=== PATIENT | female | born 1995 | race American Indian/Alaskan Native ===

== ENCOUNTER 2019-01-07 18:47 | Emergency (ER) | payer OTHER ==
[2019-01-07 19:39] VITALS: BP 117/80
--- NOTE | 2019-01-07 19:47 | Emergency Department Report ---
Chief Complaint: Urogenital-Female Stated Complaint: EXPOSURE TO STD Time Seen by Provider: 01/07/19 19:40 - HPI History of Present Illness: This is a 23-year-old female nontoxic, well in appearance with no signs of distress presents to the ED for STD check. Patient stated that his partner called and said has STD. Patient stated was treated by PCP for STD and she just wants to have a recheck. Patient stated she is asymptotic. Denies any vaginal discharge, vaginal pain, or swelling. Patient denies any urinary symptoms. Patient denies any fever, chills, headache, nausea, vomiting, chest pain or shortness of breathe. Denies any other symptoms or complaints. Denies any allergies or PMH. - Exam Vital Signs: Vital Signs 01/07/19 19:35 Temperature 99.0 F Pulse Rate 71 Respiratory 18 Rate Blood Pressure 117/80 O2 Sat by Pulse 100 Oximetry MSE screening note: Focused history and physical exam performed. Due to findings the following was ordered: ED Medical Decision Making - Medical Decision Making This is a 23-year-old female that presents with nonmedical emergency complaint. Patient is just requested for a STD test. Patient denies any symptoms. Patient was approached by registration for insurance or copay but patient refused. I gave patient many different referrals to follow-up with STD concerns. Patient was instructed to Follow-up with a primary care doctor in 3-5 days or if symptoms worsen and continue return to emergency room as soon as possible. At time of discharge, the patient does not seem toxic or ill in appearance. No acute signs of distress noted. Patient agrees to discharge treatment plan of care. No further questions noted by the patient. ED Disposition for MSE Clinical Impression: Possible exposure to STD Disposition: Z-07 MED SCREENING EXAM-LEFT Is pt being admited?: No Does the pt Need Aspirin: No Condition: Stable Instructions: Safe Sex (ED) Additional Instructions: Follow-up with a primary care/[facility] doctor in 3-5 days or if symptoms worsen and continue return to emergency room as soon as possible. Referrals: SHERRON ONEONTASTONEY MD [Primary Care Provider] - 3-5 Days PRIMARY MD DEYA [Referring] - 3-5 Days DALLIN EUBANKS MD [Staff Physician] - 3-5 Days [facility] [Outside] - 3-5 Days [facility] [Outside] - 3-5 Days
== END 2019-01-07 20:05 | disposition left against medical advice (07) ==
LOC: ED 18:47
DX: Z20.2 Contact with and (suspected) exposure to infections with a predominantly sexual mode of transmission (principal)
CPT/HCPCS: 99282